=== PATIENT | female | born 2000 | race Caucasian/White ===

== ENCOUNTER 2021-08-29 19:25 | Emergency (ER) | payer OTHER ==
[~2021-08-29] VITALS: Ht 170.2 cm; Wt 113.4 kg
[2021-08-29 19:41] VITALS: BP_SYST 135
[2021-08-29 21:12] LABS: BILIRUBIN,URINE NEGATIVE (NEGATIVE); BLOOD, URINE NEGATIVE (NEGATIVE); CLARITY/URINE CLEAR (CLEAR); COLOR,URINE YELLOW (YELLOW); GLUCOSE,URINE NEGATIVE (NEGATIVE); KETONES,URINE NEGATIVE (NEGATIVE); LEUKOCYTE ESTERASE ,URINE NEGATIVE (NEGATIVE); NITRITE, URINE POSITIVE (NEGATIVE); PROTEIN URINE NEGATIVE (NEGATIVE)
--- NOTE | 2021-08-29 21:37 | NUR ---
DR. WORTHINGTON AT BEDSIDE FOR EVALUATION.
[2021-08-29] MEDS ORDERED: CEPH-548 PO (21:38)
[2021-08-29] MEDS ORDERED: cephALEXin 500 MG CAPSULE PO ONE (21:45)
[2021-08-29] MEDS ORDERED: ONDANSETRON 4 MG ODT TAB PO ONE (21:45)
[2021-08-29] MEDS ORDERED: HYDROcodone/ACETAMIN 5-325 MG TAB (NORCO/ VICODIN) PO ONE (21:45)
[2021-08-29] MEDS ORDERED: IBUPROFEN 600 MG TABLET PO ONE (21:45)
--- NOTE | 2021-08-29 21:50 | NUR ---
Patient to ER bed CHAIR HALLWAY 1 to gown for evaluation. Side rails up.
--- NOTE | 2021-08-29 22:00 | NUR ---
PATIENT AAOX4 AND AMBUALTORY FROM HOME C/O BILATERAL FLANK PAIN THAT STARTED TODAY. PT STATED SHE HAS UTI, TOOK AN AT HOME UTI TEST AND TESTED POSITIVE. VSS. CURRENTLY STATING 10/10 ON THE PAIN SCALE. +FREQUENCY AND DYSURIA.
[2021-08-29 22:18] LABS: BACTERIA,URINE FEW /HPF (None Seen); MUCUS,URINE None Seen /LPF (None Seen); RBC,URINE NONE SEEN /HPF (0-3); WBC,URINE 0-3 /HPF (0-3)
[2021-08-29] MEDS ORDERED: ONDA-8 TL (22:24)
[2021-08-29 22:28] VITALS: BP_SYST 135
--- NOTE | 2021-08-29 22:28 | NUR ---
Patient given written and verbal discharge instructions and verbalizes understanding. DR. ANDER ESPINOZA MD discussed with patient the results and treatment provided. Patient in stable condition. ID arm band removed. Rx of CEPHALEXIN given. Patient educated on pain management and to follow up with PMD. Pain Scale 0/10 Opportunity for questions provided and answered. Medication side effect fact sheet provided.
== END 2021-08-29 22:28 | disposition home or self-care (01) ==
LOC: SED 19:25
DX: N39.0 Urinary tract infection, site not specified (principal); Z88.1 Allergy status to other antibiotic agents; Z79.899 Other long term (current) drug therapy
CPT/HCPCS: 81000; 81025; 87086; 99284; Q0162